=== PATIENT | female | born 2000 | race Caucasian/White ===

== ENCOUNTER → 2024-06-18 12:35 | Outpatient (REF) | payer BC, SELFPAY | LOC: WDC 12:35 | PROVIDERS: ATTENDING PHYSICIAN Nurse Practitioner Primary Care | DX: N63.0 Unspecified lump in unspecified breast (principal); N63.12 Unspecified lump in the right breast, upper inner quadrant | CPT/HCPCS: 76642 ==

== ENCOUNTER → 2024-07-08 08:58 | Outpatient (REF) | payer BC, SELFPAY | LOC: WDC 08:58 | PROVIDERS: ATTENDING PHYSICIAN Nurse Practitioner Primary Care | DX: N63.12 Unspecified lump in the right breast, upper inner quadrant (principal); N63.21 Unspecified lump in the left breast, upper outer quadrant | CPT/HCPCS: 77062; 77066 ==

== ENCOUNTER → 2024-11-17 07:16 | Outpatient (REF) | payer BC, SELFPAY | LOC: HWRAD 07:16 | PROVIDERS: ATTENDING PHYSICIAN Internal Medicine; FAMILY PHYSICIAN Nurse Practitioner Primary Care | DX: E06.3 Autoimmune thyroiditis (principal) | CPT/HCPCS: 76536 ==

== ENCOUNTER → 2024-12-31 15:16 | Outpatient (REF) | payer BC, SELFPAY | LOC: DHSLP 15:16 | PROVIDERS: ATTENDING PHYSICIAN Nurse Practitioner Primary Care | DX: G47.30 Sleep apnea, unspecified (principal); R40.0 Somnolence; R06.83 Snoring | CPT/HCPCS: 95800 ==

== ENCOUNTER 2025-06-14 11:18 | Emergency (ER) | payer BC, SELFPAY ==
[2025-06-14 11:19] VITALS: BP 138/108
[2025-06-14 12:07] VITALS: BMI 27.6
[2025-06-14 12:13] VITALS: BP 121/81
--- NOTE | 2025-06-14 12:35 | EDRN ---
Dane Vila PA in room w/pt at this time.
--- NOTE | 2025-06-14 12:38 | ED.GENMED ---
History of Present Illness
General
Chief Complaint: Allergic Reaction
Time Seen by Provider: 06/14/25 12:07
History of Present Illness
History of Present Illness:
24-year-old female presents to the emergency department for evaluation of acute flareup of chronic urticaria. She has been managed by center medical specialist at [facility] for many years, previously was on Xolair for 3 years, however due
to decreasing effectiveness was recently switched to Dupixent. She has had 3 injections of Dupixent and feels as though her urticaria worse. She had a 5-day pulse dose of prednisone last week but symptoms restarted almost immediately after
completion. She reports throat itching and diffuse itching in association with these hives. In addition she takes 20 mg of cetirizine twice daily
Review of Systems
Review of Systems
Allergies reviewed?: Yes
All Other Systems: ROS reviewed and negative except as documented in HPI and ROS
Phy Exam
Physical Exam
Physical Exam:
GEN: Well appearing, NAD, WDWN
HEENT: Oral mucosa moist, no scleral icterus
Cardiac: Regular rate
Lung: No respiratory distress, no tachypnea
MSK: No gross deformity or injuries
Skin: Good color, no pallor or jaundice, widespread urticarial lesions to the face, upper and lower extremities and torso, no visible angioedema
Neuro: AO x3, moves all extremities freely
Psych: Calm, cooperative
Course
Vital Signs
Initial and Last Documented VS:
Initial Vital Signs
Temp Pulse Resp BP Pulse Ox
98.4 F 91 18 138/108 99
06/14/25 11:19 06/14/25 11:19 06/14/25 11:19 06/14/25 11:19 06/14/25 11:19
Last Documented Vital Signs
Temp Pulse Resp BP Pulse Ox
98.4 F 68 16 121/81 98
06/14/25 11:19 06/14/25 12:13 06/14/25 12:13 06/14/25 12:13 06/14/25 12:40
MDM/Problems Addressed
MDM/Problems Addressed:
Treatment options limited due to patient's chronic illness and use of multiple antihistamines/Biologics. Will prescribe longer tapering course of prednisone, will also offer Singulair as a backup option for symptoms to further steroid usage
*Pulse Oximetry
SaO2: 98
Oxygen Mode of Delivery: Room air
Patient hypoxic: no
*Critical Care Note
Total Time (30-74mins, 75-104mins- exclusive of procedures): Not Applicable
ED Attending Note
-
Portions of this chart may have been created with voice recognition software.� Occasional wrong word or��sound alike� substitutions may have occurred due to the inherent limitations of voice recognition software.
Discharge Plan
Departure
Patient Disposition: Home (Routine Discharge)
Date of Disposition: 06/14/25
Time of Disposition: 12:40
Patient with high blood pressure during this ER visit?: No
Discharge Problem:
Acute idiopathic urticaria
Instructions: Hives (DC)
Prescriptions:
New
prednisone 10 mg tablet
10 mg PO DAILY Qty: 43 0RF
Rx Instructions:
Once daily as follows (MG): 60, 60, 50, 50, 40, 40, 30, 30, 20, 20, 10, 10, 5, 5
montelukast 10 mg tablet
10 mg PO HS Qty: 30 0RF
Activity Restrictions/Additional Instructions:
Follow up with your cage tender for further management
Interventions
Interventions:
*Risk Screen - Suicide Last Done: 06/14/25 12:07
*General Assessment Last Done: 06/14/25 12:07
*Neglect/Abuse Screening Last Done: 06/14/25 12:07
*ED- Fall Risk Assessment Last Done: 06/14/25 12:07
*ED COVID-19 Vaccine History Last Done: 06/14/25 12:07
*Nursing Disposition Last Done: 06/14/25 12:55
ED- Cardiac Assessment Last Done: 06/14/25 12:09
ED- Pulmonary Assessment Last Done: 06/14/25 12:09
ED-Skin Assessment Last Done: 06/14/25 12:09
Discharge Date and Time
Discharge Date/Time: 06/14/25 12:55
Print Language: GEORGIAN
== END 2025-06-14 12:55 | disposition home or self-care (01) ==
LOC: EMR 11:18
PROVIDERS: EMERGENCY PHYSICIAN Emergency Medicine; FAMILY PHYSICIAN Nurse Practitioner Primary Care
DX: L50.1 Idiopathic urticaria (principal)
CPT/HCPCS: 99283